=== PATIENT | female | born 1990 | race Caucasian/White ===

== ENCOUNTER 2020-07-12 09:20 | Outpatient (CLI) | payer BC, SELFPAY ==
[2020-07-18 09:49] LABS: COVID-19 RT-PCR UVMMC Result Negative (Negative)
== END 2020-07-12 09:40 ==
PROVIDERS: Visit Provider Family Medicine
DX: Z20.828 Contact with and (suspected) exposure to other viral communicable diseases (principal)
CPT/HCPCS: U0003

== ENCOUNTER 2020-07-17 08:50 | Outpatient (CLI) | payer BC, SELFPAY ==
[2020-07-18 15:08] LABS: COVID-19 RT-PCR UVMMC Result Negative (Negative)
== END 2020-07-17 09:10 ==
PROVIDERS: Visit Provider Family Medicine
DX: Z20.828 Contact with and (suspected) exposure to other viral communicable diseases (principal)
CPT/HCPCS: U0003

== ENCOUNTER 2020-07-25 09:49 | Outpatient (CLI) | payer BC, SELFPAY ==
[2020-07-26 14:49] LABS: COVID-19 RT-PCR UVMMC Result Negative (Negative)
== END 2020-07-25 10:09 ==
PROVIDERS: Visit Provider Family Medicine
DX: Z20.828 Contact with and (suspected) exposure to other viral communicable diseases (principal)
CPT/HCPCS: U0003

== ENCOUNTER 2021-10-03 11:06 | Outpatient (REF) | payer BC, SELFPAY ==
--- NOTE | 2021-10-03 09:00 | PAPFT_PTH ---
PATIENT: Arline Ken LOC: [facility] U#:[id number] AGE/SX: 31/F ROOM: RE10/03/[address]: Edna Sahni APRN : 1990 BED: DIS: 10/03/2021 SPEC #: [id number] RECD: 10/03/21 18:23 STATUS: LIGIA REAnjali #: [id number] SAE: 10/03/21 09:[address]: Edna Sahni DEPT: [facility] Cytology RECD BY: Mirta Ruiz Tissues: 1 - CX/ENDOCX FOR PAP SMEARS Procedures: PAP THIN PREP/UVM Screening HPV DNA PROBE Comments: [id number]
== END 2021-10-03 11:07 | disposition home or self-care (01) ==
LOC: LBN 11:06
PROVIDERS: PCP Nurse Practitioner; Referring Provider Nurse Practitioner; Visit Provider Nurse Practitioner
DX: Z12.4 Encounter for screening for malignant neoplasm of cervix (principal); Z11.51 Encounter for screening for human papillomavirus (HPV)
CPT/HCPCS: 88142; 87624

== ENCOUNTER 2022-05-18 16:47 | Emergency (ER) | payer BC, SELFPAY ==
--- NOTE | 2022-05-18 16:45 | DI.CT_ITS ---
Exam(s) CT HEAD WO EXAM: CT HEAD WO CLINICAL HISTORY: Slurred speech, Arm numbness resolved. TECHNIQUE: Imaging Protocol: Axial computed tomography images with coronal and sagittal reformatted images were created and reviewed COMPARISON: No exams were available for comparison FINDINGS: There are no skull fractures. There is no fluid in the visualized paranasal sinuses. There is no evidence of intracranial hemorrhage, mass effect, or shift of midline structures. There are no extra-axial fluid collections. The ventricles are not enlarged or shifted and there is no blo od within the ventricular system nor within the basal cisterns. IMPRESSION: No acute intracranial findings on this noninfused CT scan of the brain. Given the history here follow-up MRI is recommended. RADIATION DOSE DELIVERED: 693.31mGy.cm Total DLP DATA REPOSITORY: All CT scans at this facility are submitted to the National Radiology Data Registry (NRDR) Dose Index Registry (DIR) with the [employer] (ACR). RADIATION OPTIMIZATION: All CT scans at this facility use at least one of these dose optimization te chniques: automated exposure control; mA and/or kV adjustment per patient size (includes targeted exa ms where dose is matched to clinical indication); or iterative reconstruction.
[2022-05-18 16:51] VITALS: BP 100/57; PULSE 90; RESP 20; TEMP 37; O2SAT 99
--- NOTE | 2022-05-18 17:00 | ED.GENADUL_ITS ---
Discharge Plan Disposition Patient Disposition: HOME Condition: Stable Discharge Details Clinical Impression: Numbness and tingling in right hand Primary Care Provider: Edna Sahni ED Provider: Marcelle Boucher Home Meds and New Rx's Prescriptions: No Action ascorbate calcium (vitamin C) 500 mg tablet 500 mg PO DAILY Discharge Instructions Instructions: Paresthesia (ED) Additional Instructions: At this time head CT, lab work is all within normal limits no evidence of bleeding, mass or evidence of stroke at this time. However if you do have any reoccurrence of your symptoms please return to the ER for additional imaging possibly an MRI. Please follow-up with your primary care doctor within the next 3 to 5 days and discuss your symptoms and request for an MRI. Follow up with primary care provider in 3-5 days. Return to ED sooner if any worsening or concerns. Increase oral fluids. Please take Tylenol or Ibuprofen with food every 4-6 hours as needed for pain a nd swelling. Referrals: Edna Sahni, DENTURE CONTOUR WIRE SPECIALIST [Primary Care Provider] - 2 days Medical Decision Making 32-year-old female presents to the ER with a chief complaint of arm numbness, slurred speech trouble walking which occurred approximately an hour prior to arrival which resolved. After approximately 5 minutes. 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 Neurologic exam is unremarkable however due to patient's symptoms I will order head CT. Differential diagnosis includes but not limited to CVA, atypical migraine, TIA. 1842: Patient reevaluation, she denies any further symptoms denies any tingling numbness or headache. I did discuss her CT results with her she verbalizes understanding. CBC, CMP, magnesium ordered to rule out electrolyte abnormality as a cause for her symptoms. Labs are within normal limits, patient denies having any further symptoms no numbness, slurring speech no hand tingling. I did discuss follow-up with her primary care provider and option for possible MRI if further symptoms develop or recur. She verbalizes understanding discussed tricked return instructions. This text was generated using [employer] system, please disregard any oddities of phrase or misspellings. Imaging Data Radiologic Study: Imaging: CT Scan Radiologist's impression: COMPARISON: No relevant prior studies available. FINDINGS: Brain: Normal. No hemorrhage. Unremarkable white matter. No mass effect. Cerebral ventricles: No ventriculomegaly. Paranasal sinuses: Visualized sinuses are unremarkable. No fluid levels. Mastoid air cells: Visualized mastoid air cells are well aerated. Bones/joints: Unremarkable. No acute fracture. Soft tissues: Unremarkable. IMPRESSION: No acute intracranial abnormality. Lab Data Lab results reviewed: Yes I reviewed the patient's lab results. Labs: Laboratory Tests Range/Units 05/18/22 05/18/22 17:29 17:29 WBC (4.4-10.8) 10^3/uL 6.59 RBC (3.93-5.22) 10^6/uL 4.33 Hgb (11.2-15.7) g/dL 12.5 Hct (36.0-46.0) % 37.4 MCV (80-95) fL 86 MCH (27.0-33.0) pg 28.9 MCHC (32.0-36.0) % 33.4 RDW (11.7-14.6) % 11.9 Plt Count (130-400) 10^3/uL 340 MPV (8.0-11.0) fL 9.4 Immature Gran % 0.2 Neutrophils % 60.5 Lymphocytes % 29.0 Monocytes % 7.1 Eosinophils % 1.7 Basophils % 1.5 Nucleated RBC % (0.0-0.3) % 0.0 Absolute Neutrophils (1.2-6.7) 10^3/uL 3.99 Absolute Lymphocytes (1.2-3.4) 10^3/uL 1.91 Absolute Monocytes (0.1-0.8) 10^3/uL 0.47 Absolute Eosinophils (0.0-0.7) 10^3/uL 0.11 Absolute Basophils (0.0-0.2) 10^3/uL 0.10 Sodium (136-145) mmol/L 142 Potassium (3.5-5.1) mmol/L 4.0 Chloride (98-107) mmol/L 107 Carbon Dioxide (21.0-32.0) mmol/L 27.6 Anion Gap (3-11) mmol/L 7.4 BUN (7-18) mg/dL 12 Creatinine (0.55-1.02) mg/dL 0.8 Est GFR (CKD-EPI 2020) (mL/min/1.73m2) 100.33 Glucose (74-106) mg/dL 89 Calcium (8.5-10.1) mg/dL 9.1 Magnesium (1.8-2.4) mg/dL 2.3 Total Bilirubin (0.2-1.0) mg/dL 0.2 AST (15-37) U/L 18 ALT (14-59) U/L 18 Alkaline Phosphatase (46-116) U/L 51 Total Protein (6.4-8.2) g/dL 7.7 Albumin (3.4-5.0) g/dL 4.3 HPI General Mode of arrival: ambulatory . Date/Time Provider Initiated Documentation: 05/18/22 16:48 . Limitations to Documentation: no limitations . Information obtained by: patient, RN notes reviewed and old records reviewed . HPI Narrative: 32-year-old female presents to the ER with a chief complaint of arm numbness, slurred speech trouble walking which occurred approximately an hour prior to arrival which resolved. After approximately 5 minutes. 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 She reports that she did have some blurry vision which has since r esolved. She denies any headache at the time. She is tearful and upset upon arrival. She denies any other associated symptoms no nausea vomiting no problems urinating no diarrhea. No significant past medical history denies taking any meds on a regular basis. Related Data Home Medications Medication Instructions Recorded Confirmed ascorbate calcium (vitamin C) 500 500 mg PO DAILY 07/05/21 10/03/21 mg tablet Allergies Allergy/AdvReac Type Severity Reaction Status Date / Time No Known Allergies Allergy Verified 10/03/21 08:39 General Stated Complaint: GenMedical NOAH: 4 Review of Systems All systems reviewed & are unremarkable except as noted in HPI and below Constitutional Constitutional: Reports headache(s) and Reports weakness ENT Ears, Nose, Mouth, and Throat: Reports headache(s) Musculoskeletal Musculoskeletal: Reports numbness and Reports tingling Neurologic Neurologic: Reports as per HPI, Denies confusion, Reports headache(s), Reports numbness, Reports tingling and Reports weakness Psychiatric Psychiatric: Denies confusion PFSH All Active Problems (Updated 05/18/22 @ 20:02 by Marcelle Boucher NP) Numbness and tingling in right hand (Acute) Viral infection (Acute) Medical History Headache Family History Father Hypertension Paternal Uncle Stroke Maternal Grandfather Multiple sclerosis Social History Smoking/Tobacco Use Status: Never Second Hand Exposure: No Smoking risk assessment performed?: Yes Alcohol Intake: never Drug use: Never Substance use type: does not use Adopted: No Caregiver/Support person: No Foster care: No Household members: spouse and children Housing: house Number of Children: 2 Communication Needs: None Education Level: college Details: Associates Do you need help understanding health information?: Never current occupation: [employer] Pets and animals: Yes (2 dogs ) Pets and animals: dog(s) Sexually active: Yes Do you think of yourself as: straight/heterosexual Current gender identity: female What is your relationship status?: How often do you talk on the phone with friends or family?: three or more times per week How often do you get together with friends or relatives?: once per week Do you belong to any clubs or organized social groups?: no Panel score (0-1 are the most socially isolated patients): 2 What type of physical activity do you participate in: other Details: Regualr activity at work, running Duration: 15-30 minutes/day Frequency: 1-2 times per week Judy/Buddhist: Mandaen Special judy needs: No Seatbelt use: always Helmet use: Yes Helmet use: sometimes Drive intox 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 Appears stated age. Normal body habitus. Head: Normocephalic, no trauma. Eyes: Pupils PERRL, Red reflex noted, EOM's intact. Eyelids symmetrical without lesions, discharge, or swelling. ENT: Bilateral TM's WNL, External ear normal to inspection, no mastoid TTP, swelling, or erythema, Nasal turbinates WNL, no nasal discharge. Normal dentition, Posterior pharynx WNL, no exudate. Chest: RRR, Normal S1, S2, distal pulses intact. Resp: Lungs clear to auscultation bilaterally, no wheezes, rales, or rhonchi. Abdomen: Soft, non-distended, Normoactive bowel sounds all 4 quads. Musculoskeletal: Normal gait, 5/5 strength to all four extremities. Skin: No suspicious rashes or lesions. Capillary refill less than 2 sec. Neurologic: Cranial nerves II-XII intact. Alert and oriented x 3. Motor: No deficits noted. Sensory: Intact bilaterally all 4 extremities. Hematologic/Lymphatic: No ecchymosis, no lymphadenopathy. Course Vital Signs Vital signs: Vital Signs Temperature 37 C 05/18/22 16:51 Pulse 90 05/18/22 16:51 Respiratory Rate 20 05/18/22 16:51 Blood Pressure 100/57 L 05/18/22 16:51 Pulse Oximetry 99 05/18/22 16:51 Temperature 37 C 05/18/22 16:51 Temperature Source Temporal Artery Scan 05/18/22 16:51 Pulse 90 05/18/22 16:51 Respiratory Rate 20 05/18/22 16:51 Respiratory Effort Non-Labored 05/18/22 16:54 Blood Pressure 100/57 L 05/18/22 16:51 Blood Pressure Position Sitting 05/18/22 16:51 Pulse Oximetry 99 05/18/22 16:51 Oxygen Delivery Method Room Air 05/18/22 16:51 Oxygen Flow Rate 0 05/18/22 16:51 Pain Level 0 05/18/22 16:51
--- NOTE | 2022-05-18 18:23 | DI.VRAD_ITS ---
PROCEDURE INFORMATION: Exam: CT Head Without Contrast Exam date and time: 05/18/2022 5:34 PM Age: 32 years old Clinical indication: Other: Slurred speech, arm numbness resolved TECHNIQUE: Imaging protocol: Computed tomography of the head without contrast. Radiation optimization: All CT scans at this facility use at least one of these dose optimization techniques: automated exposure control; mA and/or kV adjustment per patient size (includes targeted exams where dose is matched to clinical indication); or iterative reconstruction. COMPARISON: No relevant prior studies available. FINDINGS: Brain: Normal. No hemorrhage. Unremarkable white matter. No mass effect. Cerebral ventricles: No ventriculomegaly. Paranasal sinuses: Visualized sinuses are unremarkable. No fluid levels. Mastoid air cells: Visualized mastoid air cells are well aerated. Bones/joints: Unremarkable. No acute fracture. Soft tissues: Unremarkable. IMPRESSION: No acute intracranial abnormality. Dictated and Authenticated by: Donny Anguiano MD. Ordering:SUZANNE Ibanez MD
[2022-05-18 19:32] LABS: Abs Immature Grans 0.01 10^3/uL (0.0-0.06); Absolute Eosinophil Count 0.11 10^3/uL (0.0-0.7); Absolute Lymphocyte Count 1.91 10^3/uL (1.2-3.4); Absolute Monocyte Count 0.47 10^3/uL (0.1-0.8); Absolute Neutrophil Count 3.99 10^3/uL (1.2-6.7); Basophils % 1.5; Eosinophils % 1.7; HCT 37.4 % (36.0-46.0); HGB 12.5 g/dL (11.2-15.7); Immature Grans % 0.2; MCH 28.9 pg (27.0-33.0); MCHC 33.4 % (32.0-36.0); MCV 86 fL (80-95); MPV 9.4 fL (8.0-11.0); Monocytes % 7.1; Neutrophils % 60.5; Platelet Count 340 10^3/uL (130-400); RBC 4.33 10^6/uL (3.93-5.22); RDW 11.9 % (11.7-14.6); RDW-SD 38.1 fL; WBC 6.59 10^3/uL (4.4-10.8)
--- NOTE | 2022-05-18 19:45 | NUR.NOTE ---
Pt currently denies symptoms. She expresses concern about symptoms
[2022-05-18 19:47] LABS: ALT 18 U/L (14-59); AST 18 U/L (15-37); Albumin 4.3 g/dL (3.4-5.0); Alkaline Phosphatase 51 U/L (46-116); Anion Gap 7.4 mmol/L (3-11); BUN 12 mg/dL (7-18); Bilirubin, Total 0.2 mg/dL (0.2-1.0); CO2 27.6 mmol/L (21.0-32.0); CREATININE 0.8 mg/dL (0.55-1.02); Calcium 9.1 mg/dL (8.5-10.1); Chloride 107 mmol/L (98-107); Estimated GFR 100.33 (mL/min/1.73m2); Glucose 89 mg/dL (74-106); Magnesium 2.3 mg/dL (1.8-2.4); Sodium 142 mmol/L (136-145); Total Protein 7.7 g/dL (6.4-8.2)
[2022-05-18 20:15] VITALS: BP 113/78; PULSE 64; RESP 16; TEMP 36.7; O2SAT 100
== END 2022-05-18 20:15 | disposition home or self-care (01) ==
PROVIDERS: Emergency Provider Registered Nurse Emergency; PCP Nurse Practitioner
DX: R20.0 Anesthesia of skin (principal); R20.2 Paresthesia of skin
CPT/HCPCS: 80053; 81025; 99284; 70450; 83735; 85025

== ENCOUNTER 2022-05-23 13:41 | Emergency (ER) | payer BC, SELFPAY ==
[2022-05-23] VITALS (8 sets, daily range): BP systolic 97–132; BP diastolic 51–80; PULSE 64–91; RESP 12–22; TEMP 36.4–36.6; O2SAT 99–100
--- NOTE | 2022-05-23 14:00 | RT.EKG_ITS ---
APPROVED REPORT Exam: Resting ECG Reason for Exam: ? CVA Patient Location: E HR:81 bpm ECG Measurements Heart Rate 81 AXIS WV 161 P 63 QRSd 91 QRS -30 QT 370 T 12 QTc 430 Conclusion Sinus rhythm...normal P axis, V-rate 60- 99 Left axis deviation...QRS axis (-30,-90) Low voltage, precordial leads...precordial leads <1.0mV
--- NOTE | 2022-05-23 14:00 | DI.MRI_ITS ---
Exam(s) MR BRAIN WO EXAM: MR BRAIN WO CLINICAL HISTORY: right arm weakness TECHNIQUE: Multiplanar multisequence MRI of the brain was performed. COMPARISON: CT CT HEAD WO from 05/18/2022 FINDINGS: VENTRICLES AND EXTRA AXIAL SPACES: Normal in size and morphology for the patient's age. MIDLINE SHIFT: None. CEREBRAL PARENCHYMA: No focus of restricted diffusion to suggest acute infarct. No space-occupying le minerva identified. HEMORRHAGE: None. BRAINSTEM/CEREBELLUM: Normal. CALVARIUM: Normal. VISUALIZED PARANASAL SINUSES/MASTOIDS:Small mucous retention cysts or polyps are seen in the maxillar y sinuses bilaterally. The remaining visualized paranasal sinuses are clear. [place]: Normal flow void. PITUITARY GLAND: Unremarkable. OTHER FINDINGS: None. IMPRESSION: 1. Unremarkable MRI of the brain. 2. Findings were discussed with Dr. Byers of the emergency department at 4:45 p.m. on 05/23/2022. DATA REPOSITORY:
--- NOTE | 2022-05-23 14:09 | DI.MRI_ITS ---
Exam(s) MR ANGIO BRAIN WO CLINICAL HISTORY: right arm weakness waxing and waning. TECHNIQUE: Multiplanar multisequence MRA of the brain was performed. COMPARISON: None. FINDINGS: Carotid Arteries: No aneurysm, occlusion or significant stenosis. Anterior Cerebral Arteries: Right: No aneurysm, occlusion or significant stenosis. Left: No aneurysm, occlusion or significant stenosis. Middle Cerebral Arteries: Right: No aneurysm, occlusion or significant stenosis. Left: No aneurysm, occlusion or significant stenosis. Posterior Cerebral Arteries: Right: No aneurysm, occlusion or significant stenosis. Left: No aneurysm, occlusion or significant stenosis. The left [employer]ESSOR [employer] MECHANICAL ENGINEERING arises from the left posterior co mmunicating artery. This is a normal variant. Vertebral Arteries: Right: No aneurysm, occlusion or significant stenosis. Left: No aneurysm, occlusion or significant stenosis. Basilar Artery: No aneurysm, occlusion or significant stenosis. IMPRESSION: 1. Normal MRA examination of the [place]. 2. Findings were discussed with Dr. Byers at 4:45 p.m. on 05/23/2022. DATA REPOSITORY:
--- NOTE | 2022-05-23 14:09 | DI.MRI_ITS ---
Exam(s) MR ANGIO NECK WO EXAM: MR ANGIO NECK WO CLINICAL HISTORY: right arm weakness waxing and waning. TECHNIQUE: Multiplanar multisequence MRA of the Neck was performed. COMPARISON: No exams were available for comparison FINDINGS: Common Carotid: Right: No dissection, occlusion or significant stenosis. Left: No dissection, occlusion or significant stenosis. External Carotid: Right: No evidence of occlusion or significant stenosis. Left: No evidence of occlusion or significant stenosis. Internal Carotid: Right: No dissection, occlusion or significant stenosis. Left: No dissection, occlusion or significant stenosis. Vertebral Artery: Right: No dissection, occlusion or significant stenosis. Left: No dissection, occlusion or significant stenosis. The visualized paraspinal soft tissues are unremarkable. IMPRESSION: 1. No evidence of dissection, occlusion or significant stenosis. 2. Findings were discussed with the emergency department at 4:45 p.m. on 05/23/2022. DATA REPOSITORY:
[2022-05-23 14:24] LABS: Abs Immature Grans 0.03 10^3/uL (0.0-0.06); Absolute Basophil Count 0.05 10^3/uL (0.0-0.2); Absolute Eosinophil Count 0.05 10^3/uL (0.0-0.7); Absolute Lymphocyte Count 1.43 10^3/uL (1.2-3.4); Absolute Monocyte Count 0.45 10^3/uL (0.1-0.8); Absolute Neutrophil Count 4.29 10^3/uL (1.2-6.7); Basophils % 0.8; Eosinophils % 0.8; HCT 37.4 % (36.0-46.0); HGB 12.8 g/dL (11.2-15.7); Immature Grans % 0.5; Lymphocytes % 22.7; MCH 29.5 pg (27.0-33.0); MCHC 34.2 % (32.0-36.0); MCV 86 fL (80-95); MPV 9.6 fL (8.0-11.0); Monocytes % 7.1; Neutrophils % 68.1; Platelet Count 335 10^3/uL (130-400); RBC 4.34 10^6/uL (3.93-5.22); RDW 11.7 % (11.7-14.6)
[2022-05-23 14:42] LABS: ALT 20 U/L (14-59); AST 21 U/L (15-37); Albumin 4.3 g/dL (3.4-5.0); Alkaline Phosphatase 49 U/L (46-116); Anion Gap 6.6 mmol/L (3-11); BUN 16 mg/dL (7-18); Bilirubin, Total 0.3 mg/dL (0.2-1.0); CO2 27.4 mmol/L (21.0-32.0); CREATININE 0.9 mg/dL (0.55-1.02); Calcium 9.4 mg/dL (8.5-10.1); Chloride 105 mmol/L (98-107); Estimated GFR 87.11 (mL/min/1.73m2); Glucose 92 mg/dL (74-106); Magnesium 1.9 mg/dL (1.8-2.4); Potassium 3.5 mmol/L (3.5-5.1); Sodium 139 mmol/L (136-145); Total Protein 7.6 g/dL (6.4-8.2); Troponin I < 50 ng/L (<or=60)
--- NOTE | 2022-05-23 15:04 | W.ED.GENAD ---
Discharge Plan Disposition Patient Disposition: HOME Condition: Stable Discharge Details Clinical Impression: Right arm weakness Primary Care Provider: Edna Sahni ED Provider: Brennan Byers Home Meds and New Rx's Prescriptions: New aspirin 81 mg capsule 81 mg PO DAILY Qty: 30 0RF Continued ascorbate calcium (vitamin C) 500 mg tablet 500 mg PO DAILY Discharge Instructions Instructions: Transient Ischemic Attack (ED) Additional Instructions: Please take aspirin 81 mg daily. You are given initial dose here before department. Your next dose should be tomorrow and then continue daily thereafter. Please contact your primary care physician to arrange follow-up. Please follow-up with neurology. Call tomorrow to schedule an appointment. Return to the ER immediately for any worsening or new concerning symptoms. Referrals: Anahy Garcia MD [ [facility] STAFF PHYSICIAN] - Edna Sahni NP [Primary Care Provider] - Discharge Data Discharge Date/Time-TO BE ENTERED AT DEPARTURE: 05/23/22 17:25 Medical Decision Making 1510 --32-year-old female here with right arm weakness and lack of proprioception intermittent over the past 1 hour on 05/18/2022. Patient is currently asymptomatic. No indication for thrombolytics. Patient had negative CT of the head on 05/18/2022. Plan to proceed to MRI of the brain and MRA of the brain and neck to assess for ischemic process. Screening EKG was reviewed and interpreted by me: Please see report, sinus rhythm 81 bpm, low voltage precordial leads, left axis deviation, nondiagnostic. 1711 --MRI and MRA were interpreted by radiology as negative. Patient reassessed and has had no recurrence of symptoms. Plan will be for outpatient follow-up with neurology. Patient would benefit from timely follow-up in the next 1 week with neuro. Plan was discussed with patient. Plan for rest over the next few days with no exertional activities. I recommended she start taking aspirin. Disposition decision was made weighing the risks and benefits of hospitalization versus outpatient treatment, the risk for further decompensation, and the patient's wishes. The patient was stable and requested discharge. Prior to discharge, my usual and customary return precautions were reviewed with the patient - this included follow-up instructions and reason to return to the emergency department if condition worsens, does not improve as expected, or other new concerns arise. HPI General Mode of arrival: ambulatory. Date/Time Provider Initiated Documentation: 05/23/22 13:56. Limitations to Documentation: no limitations. Information obtained by: patient. HPI Narrative: 32-year-old female presents with chief complaint of right arm weakness. Patient notes that she was seen here in the emergency department on 05/18 for sudden onset left arm weakness and slurred speech that lasted approximately 5 minutes and resolved. She had negative diagnostic labs and CT of the head and was discharged home. She notes about an hour prior to arrival today she developed right arm weakness and a sensation of lack of proprioception. Symptoms have waxed and waned today since onset. She does not currently have symptoms. She also notes some associated dizziness. Currently patient is asymptomatic. She denies associated neck pain. Related Data Home Medications Medication Instructions Recorded Confirmed ascorbate calcium (vitamin C) 500 500 mg PO DAILY 07/05/21 05/30/22 mg tablet aspirin 81 mg capsule 81 mg PO DAILY #30 caps 05/23/22 05/30/22 Previous Rx's Medication Instructions Recorded aspirin 81 mg capsule 81 mg PO DAILY #30 caps 05/23/22 Allergies Allergy/AdvReac Type Severity Reaction Status Date / Time No Known Allergies Allergy Verified 05/30/22 13:51 General Stated Complaint: CVA/TIA NOAH: 2 Review of Systems All systems reviewed & are unremarkable except as noted in HPI and below Constitutional Constitutional: Denies fever(s) Cardiovascular Cardiovascular: Denies dyspnea Respiratory Respiratory: Denies dyspnea Neurologic Neurologic: Reports as per HPI PFSH All Active Problems (Updated 05/30/22 @ 14:30 by Anahy Garcia MD) Transient neurological symptoms (Acute) Numbness and tingling in right hand (Acute) Right arm weakness (Acute) Viral infection (Acute) Medical History Headache Family History Father Hypertension Paternal Uncle Stroke Maternal Grandfather Multiple sclerosis Social History Smoking/Tobacco Use Status: Never Second Hand Exposure: No Smoking risk assessment performed?: Yes Alcohol Intake: never Drug use: Never Substance use type: does not use Adopted: No Caregiver/Support person: No Foster care: No Household members: spouse and children Housing: house Number of Children: 2 Communication Needs: None Education Level: college Details: Associates Do you need help understanding health information?: Never current occupation: [employer] Pets and animals: Yes (2 dogs ) Pets and animals: dog(s) Sexually active: Yes Do you think of yourself as: straight/heterosexual Current gender identity: female What is your relationship status?: How often do you talk on the phone with friends or family?: three or more times per week How often do you get together with friends or relatives?: once per week Do you belong to any clubs or organized social groups?: no Panel score (0-1 are the most socially isolated patients): 2 What type of physical activity do you participate in: other Details: Regualr activity at work, running Duration: 15-30 minutes/day Frequency: 1-2 times per week Judy/Holiness: Church Special judy needs: No Seatbelt use: always Helmet use: Yes Helmet use: sometimes Drive intox 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 Do you feel safe in your relationship?: Yes Exam Const General: cooperative and anxious Orientation: alert and awake HENMT Mouth: moist mucous membranes Eyes Conjunctivae: normal conjunctivae Sclera: normal sclerae Neck Neck: trachea midline and supple Resp Auscultation: clear to auscultation bilaterally, no rales, no rhonchi and no wheezes Cardio Rate: regular rate and not tachycardic Rhythm: regular rhythm GI Palpation: soft, not firm, no guarding, no masses, not rigid and nontender Skin General skin exam: no rashes or lesions noted Neuro General: patient alert, patient awake and tone normal Cranial Nerves: PERRL, accommodation normal, EOM intact bilaterally, no nystagmus, facial strength normal, tongue midline, able to rotate head bilaterally, able to elevate shoulders bilaterally, sense of smell not altered and symmetric palate elevation Cognition: normal cognition Speech: speech normal Motor: muscle tone normal throughout, strength 5/5 throughout and no pronator drift Sensory Exam: no sensory deficits noted Extrem General: no edema Psych Appearance: grossly normal Mental Status: mental status grossly normal Speech and Movement: speech and movement normal Course Vital Signs Vital signs: Vital Signs Temperature 36.4 C L 05/23/22 13:45 Pulse 91 H 05/23/22 13:45 Respiratory Rate 22 05/23/22 13:45 Blood Pressure 132/61 05/23/22 13:45 Pulse Oximetry 99 05/23/22 13:45 Temperature 36.4 C L 05/23/22 13:45 Temperature Source Oral 05/23/22 13:45 Pulse 64 05/23/22 14:46 Pulse 71 05/23/22 14:46 Respiratory Rate 12 05/23/22 14:46 Respiratory Effort Non-Labored 05/23/22 14:00 Respiratory Depth Normal 05/23/22 14:00 Respiratory Pattern Normal 05/23/22 14:00 Blood Pressure 97/51 L 05/23/22 14:46 Blood Pressure Mean 61 05/23/22 14:46 Blood Pressure Position Sitting 05/23/22 13:45 Pulse Oximetry 99 05/23/22 14:46 Oxygen Delivery Method Room Air 05/23/22 13:45 Oxygen Flow Rate 0 05/23/22 13:45 Pain Level 0 05/23/22 13:45 Lab/Test Results Lab/Test Results: Laboratory Tests Range/Units 05/23/22 05/23/22 14:15 14:15 WBC (4.4-10.8) 10^3/uL 6.30 RBC (3.93-5.22) 10^6/uL 4.34 Hgb (11.2-15.7) g/dL 12.8 Hct (36.0-46.0) % 37.4 MCV (80-95) fL 86 MCH (27.0-33.0) pg 29.5 MCHC (32.0-36.0) % 34.2 RDW (11.7-14.6) % 11.7 Plt Count (130-400) 10^3/uL 335 MPV (8.0-11.0) fL 9.6 Immature Gran % 0.5 Neutrophils % 68.1 Lymphocytes % 22.7 Monocytes % 7.1 Eosinophils % 0.8 Basophils % 0.8 Nucleated RBC % (0.0-0.3) % 0.0 Absolute Neutrophils (1.2-6.7) 10^3/uL 4.29 Absolute Lymphocytes (1.2-3.4) 10^3/uL 1.43 Absolute Monocytes (0.1-0.8) 10^3/uL 0.45 Absolute Eosinophils (0.0-0.7) 10^3/uL 0.05 Absolute Basophils (0.0-0.2) 10^3/uL 0.05 Sodium (136-145) mmol/L 139 Potassium (3.5-5.1) mmol/L 3.5 Chloride (98-107) mmol/L 105 Carbon Dioxide (21.0-32.0) mmol/L 27.4 Anion Gap (3-11) mmol/L 6.6 BUN (7-18) mg/dL 16 Creatinine (0.55-1.02) mg/dL 0.9 Est GFR (CKD-EPI 2020) (mL/min/1.73m2) 87.11 Glucose (74-106) mg/dL 92 Calcium (8.5-10.1) mg/dL 9.4 Magnesium (1.8-2.4) mg/dL 1.9 Total Bilirubin (0.2-1.0) mg/dL 0.3 AST (15-37) U/L 21 ALT (14-59) U/L 20 Alkaline Phosphatase (46-116) U/L 49 Troponin I (<or=60) ng/L < 50 Total Protein (6.4-8.2) g/dL 7.6 Albumin (3.4-5.0) g/dL 4.3
--- NOTE | 2022-05-23 17:15 | NUR.NOTE ---
Nursing Note: REFERRAL TO [facility] FOR TIA
[2022-05-23] MEDS: Aspirin 81 MG CHEW PO (17:22)
== END 2022-05-23 17:25 | disposition home or self-care (01) ==
PROVIDERS: Emergency Provider Student in an Organized Health Care Education/Training Program; PCP Nurse Practitioner
DX: R53.1 Weakness (principal); R20.0 Anesthesia of skin; R47.81 Slurred speech
CPT/HCPCS: 36415; 70544; 70547; 80053; 93005; 99285; 70551; 83735; 84484; 85025; 93010; 99284

== ENCOUNTER 2022-06-21 01:43 | Outpatient (CLI) | payer BC, SELFPAY ==
--- OUTSIDE RECORDS SUMMARY | 2022-06-21 01:45 | XMS_ITS | Clinical Summary ---
:1990 Demographics Home Phone Preferred Language Unknown Marital Status Unknown Scientologist Affiliation Unknown Race Unknown Ethnic Group Unknown Author Organization [facility] Address [address] [place] [address] Care Team Providers Name Role Phone Unavailable Primary Care Provider Unavailable Social History Tobacco Use Types Packs/Day Years Used Date Smoking Tobacco: Never Assessed Sex Assigned at Date Recorded Not on file Plan of Treatment Health Maintenance Due Date Last Done Comments Hepatitis C Screen 1990 COVID-19 Vaccine (#1) 1990
--- OUTSIDE RECORDS SUMMARY | 2022-06-21 01:45 | XMS_ITS | Encounter Summary ---
:1990 Demographics Home Phone Preferred Language Unknown Marital Status Unknown Protestant Affiliation Unknown Race Unknown Ethnic Group Unknown Author Organization [facility] Address [address] [place] [address] Care Team Providers Name Role Phone Unavailable Primary Care Provider Unavailable Encounter Details Date Type Department Care Team Description 07/25/2020 Lab Requisition [facility] Outr Resulting Lab, Pathology & Laboratory Provider [facility] [address] [place] [address] Social History Tobacco Use Types Packs/Day Years Used Date Smoking Tobacco: Never Assessed Sex Assigned at Date Recorded Not on file documented as of this encounter Plan of Treatment Not on filedocumented as of this encounter Procedures Procedure Name Priority Date/Time Associated Diagnosis Comme nts COVID-19 TEST [facility] Today 07/25/2020 9:52 EST LAB PCR COVID-19 TESTING Routine 07/25/2020 9:52 EST Resu lts for this procedure are i n the results section. documented in this encounter Results COVID-19 TEST [facility] LAB PCR (07/25/2020 9:52 EST) Specimen Anatomical Location Collection Method Collection Time Received Time (Source) / Laterality / Volume Swab ENTIRE NASOPHARYNX 07/25/2020 9:52 2019 / Unknown EST 16:07 EST Provider Outr Resulting Lab MICROBIOLOGY - GENERAL ORD ERABLES Performing Organization Address City/State/ZIP Code Phon e Number [facility] [address] [place] [address] SERVICES COVID-19 TESTING (07/25/2020 9:52 EST) Analysis Performed At Patho logist Time Signature COVID-19 Negative Negative 07/26/2020 [facility] MED[facility] rt-PCR Result 14:44 EST CENTER LABORATORY SERVICES Comment: Negative results do not preclude 2019-nC oV infection and should not be used as the sole basis for treatment or other patient management decisions. Negative results must be combined with clinical observa tions, patient history, and epidemiologi shaheen information. This test was developed and its performa nce characteristics determined by [facility]. It has not been cleared or approved by the US Food and Drug Administration. FDA does not require this test to go through premarket FDA review. This test is used for clinical purposes. It should not be regarded as investigational or for research. This laboratory is certified under the Clinical Laboratory Improvement Amendm ents (CLIA) as qualified to perform high complexity clinical laboratory testing. This test is based on the CDC COVID-19 E mergency Use Authorization (EUA) assay, with minor modification as defined by the FDA Performed on the [employer] 7 Flex. Performing Lab Quantstudio 7 [facility] 07/26/2020 14:4 4 EST [facility] Lab LABORATORY SERVICES Specimen Anatomical Collection Method Collection Time Receive d Time (Source) Location / / Volume Laterality Swab 07/25/2020 9:52 07/25/2020 EST 16:07 EST Provider Outr Resulting Lab MICROBIOLOGY - GENERAL ORD ERABLES Performing Organization Address City/State/ZIP Code Phon e Number [facility] [address] [place] [address] SERVICES documented in this encounter Visit Diagnoses Not on filedocumented in this encounter
--- OUTSIDE RECORDS SUMMARY | 2022-06-21 01:45 | XMS_ITS | Encounter Summary ---
:1990 Demographics Home Phone Preferred Language Unknown Marital Status Unknown Scientology Affiliation Unknown Race Unknown Ethnic Group Unknown Author Organization [facility] Address [address] [place] [address] Care Team Providers Name Role Phone Unavailable Primary Care Provider Unavailable Encounter Details Date Type Department Care Team Description 10/04/2021 Lab Requisition [facility] Edna Sahni nter for screening for human papillomavirus (HPV); Pathology & A, BOLT MACHINE OPERATOR Encounter for screening for malignant ne oplasm of cervix Laboratory Medicine [address] [place] [id number] Social History Tobacco Use Types Packs/Day Years Used Date Smoking Tobacco: Never Assessed Sex Assigned at Date Recorded Not on file documented as of this encounter Plan of Treatment Not on filedocumented as of this encounter Procedures Procedure Name Priority Date/Time Associated Diagnosis Comme nts PAP TEST Today 10/03/2021 9:00 Encounter for Results for this EST screening for human procedur e are in papillomavirus ( HPV) the results Encounter for section. screening for malignant neoplasm of cervix HUMAN PAPILLOMAVIRUS Today 10/03/2021 9:00 Encounter for Res ults for this (HPV) DETECTION-HIGH EST screening for human procedure are in RISK TYPES papillomavirus ( HPV) the results Encounter for section. screening for malignant neoplasm of cervix documented in this encounter Results HUMAN PAPILLOMAVIRUS (HPV) DETECTION-HIGH RISK TYPES (10/03/2021 9:00 EST) [facility] gist Method Time Signature Human Negative Negative 10/12/2021 [facility] Papillomavirus 8:09 EDT CENTER (HPV) LABORATORY Detection-High SERVICES Types Comment: No E6 or E7 mRNA is detected fr HPV types 16,18,31,33,35,39,45,51,52,56,58,59,66, and 68 by community facilitator mediated amplification. Specimen Anatomical Collection Method Collection Time Receive d Time (Source) Location / / Volume Laterality Pap Test (Cervix 10/03/2021 9:00 10/10/19 22 9:08 and/or EST EDT Endocervix) Edna Sahni BOLT MACHINE OPERATOR MICROBIOLOGY - GENERAL ORDER SHANIKA Performing Organization Address City/State/ZIP Code Phon e Number [facility] [address] [place] [address] SERVICES PAP TEST (10/03/2021 9:00 EST) Component Value Ref Test Analysis Performed At [facility] gist Range Method Time Signature Specimens A. Cervix and/or 10/12/2021 [facility] Endocervix , 8:09 [facility] ThinPrep Imaging LABORATORY System with SERVICES Manual Evaluation Specimen Satisfactory for Evaluation - transformation zone comp onent present 10/12/2021 [facility] Adequacy Scant squamous epithelial co mponent, contamination present, possibly lubricant 8:09 [facility] LABORATORY SERVICES General Negative for 10/12/2021 [facility] Categorization intraepithelial 8:09 [facility] lesion or LABORATORY malignancy SERVICES Attestation . 10/12/2021 [facility] Elect ronically 8:09 [facility] signed by GERTRUDE Blackwood, GUNNAR Maldonado(ASCP) o n 10/12/2021 at 0809 Clinical History See below 10/12/2021 [facility] 8:09 [facility] LABORATORY SERVICES HPV The result for the Human Pap illomavirus (HPV) Detection-High Risk Types is Negative. No E6 or E7 mRNA is detected from HPV types 16,18,31,33,35,39,45,51,52,56,58,59,66, and 68 by community facilitator mediated 10/12/2021 [facility] amplification.Testing was pe rformed on specimen [id number] and was resulted on 10/12/2021 0806 EDT by RASHIDA, LAB INSTRUMENT RESULTS IN 8:09 [facility] LABORATORY SERVICES Performing Lab [facility] 10/12/2021 [facility] LAB 8:09 [facility] LABORATORY SERVICES Scanned Images 10/12/2021 [facility] 8:09 [facility] LABORATORY SERVICES Specimen Anatomical Collection Method Collection Time Receive d Time (Source) Location / / Volume Laterality Pap Test (Cervix 10/03/2021 9:00 10/05/19 22 9:28 and/or EST EST Endocervix) Edna Sahni NP PATHOLOGY ORDERABLES Performing Organization Address City/State/ZIP Code Phon e Number [facility] [address] [place] [address] SERVICES documented in this encounter Visit Diagnoses Diagnosis Encounter for screening for human papill omavirus (HPV) Special screening examination for human papillomavirus (HPV) Encounter for screening for malignant ne oplasm of cervix Screening for malignant neoplasm of the cervix documented in this encounter
--- OUTSIDE RECORDS SUMMARY | 2022-06-21 01:45 | XMS_ITS | Encounter Summary ---
:1990 Demographics Home Phone Preferred Language Unknown Marital Status Unknown Anglican Affiliation Unknown Race Unknown Ethnic Group Unknown Author Organization [facility] Address [address] [place] [address] Care Team Providers Name Role Phone Unavailable Primary Care Provider Unavailable Encounter Details Date Type Department Care Team Description 07/12/2020 Lab Requisition [facility] Outr Resulting Lab, Pathology & Laboratory Provider [facility] [address] [place] [address] Social History Tobacco Use Types Packs/Day Years Used Date Smoking Tobacco: Never Assessed Sex Assigned at Date Recorded Not on file documented as of this encounter Plan of Treatment Not on filedocumented as of this encounter Procedures Procedure Name Priority Date/Time Associated Diagnosis Comme nts COVID-19 TEST [facility] Today 07/12/2020 9:29 EST LAB PCR COVID-19 TESTING Routine 07/12/2020 9:29 EST Resu lts for this procedure are i n the results section. documented in this encounter Results COVID-19 TEST [facility] LAB PCR (07/12/2020 9:29 EST) Specimen Anatomical Location Collection Method Collection Time Received Time (Source) / Laterality / Volume Swab ENTIRE NASOPHARYNX 07/12/2020 9:29 2019 / Unknown EST 16:45 EST Provider Outr Resulting Lab MICROBIOLOGY - GENERAL ORD ERABLES Performing Organization Address City/State/ZIP Code Phon e Number [facility] [address] [place] [address] SERVICES COVID-19 TESTING (07/12/2020 9:29 EST) Analysis Performed At Patho logist Time Signature COVID-19 Negative Negative 07/18/2020 [facility] rt-PCR Result 9:42 EST CENTER LABORATORY SERVICES Comment: Negative results do not preclude 2019-nC oV infection and should not be used as the sole basis for treatment or other patient management decisions. Negative results must be combined with clinical observa tions, patient history, and epidemiologi shaheen information. This test was developed and its performa nce characteristics determined by [facility]. It has not been cleared or approved [...] defined by the FDA Performed on the [employer] 7 Flex. Performing Lab Quantstudio 7 [facility] Lab 07/18/2020 9:42 EST [facility] SERVICES Specimen Anatomical Collection Method Collection Time Receive d Time (Source) Location / / Volume Laterality Swab 07/12/2020 9:29 07/12/2020 EST 16:45 EST Provider Outr Resulting Lab MICROBIOLOGY - GENERAL ORD ERABLES Performing Organization Address City/State/ZIP Code Phon e Number [facility] [address] [place] [address] SERVICES documented in this encounter Visit Diagnoses Not on filedocumented in this encounter
--- OUTSIDE RECORDS SUMMARY | 2022-06-21 01:45 | XMS_ITS | Clinical Summary ---
:1990 Author Organization [facility] [place] [address] Care Team Providers Name Role Phone None Primary Care Provider Unavailable Allergies No known active allergies Medications No known medications Social History Tobacco Use Types Packs/Day Years Used Date Smoking Tobacco: Never Smokeless Tobacco: Never Sex Assigned at Date Recorded Not on file Plan of Treatment Health Maintenance Due Date Last Done Comments Hepatitis B vaccine (0-59 yrs) (1 of 3 - 3-dose series) 04/14/19 90 Covid-19 Vaccine (#1) 1990 HIV screen 2008 Hepatitis C Screening 2008 Tdap adult 2009 Tetanus vaccine 2009 HPV test 2020 PAP Smear 2020 Influenza (Flu) vaccine (1 of 1 - Influenza standard 03/28/2022 series) Insurance Payer Benefit Plan / Subscriber ID Effective Dates Phone Addre ss Type Group [employer] [place] [id number] 2018-Present [address] [employer] [place] [place], [place] [address] Care Teams Test Facility Engineer Relationship Specialty Start Date End Date None PCP - General 06/03/19 None
--- OUTSIDE RECORDS SUMMARY | 2022-06-21 01:45 | XMS_ITS | Encounter Summary ---
:1990 Author Organization [facility] [place] [address] Care Team Providers Name Role Phone None Primary Care Provider Unavailable Reason for Visit Reason Comments Follow-up Encounter Details Date Type Department Care Team Description 06/03/2019 Office Visit Dermatology at [facility] Stephen Barth MD [place] [address] [place] [address] DERMATOLOGY [phone] [place], [place] [address] (Wo rk) Social History Tobacco Use Types Packs/Day Years Used Date Smoking Tobacco: Never Smokeless Tobacco: Never Sex Assigned at Date Recorded Not on file documented as of this encounter Progress Notes Stephen Barth MD - 06/03/2019 8:00 AM EST Problem: 1. Changing nevus left nasolabial fold 2. Status post excision nevus right nasolabial fold November 2009 Arline follows up and is now 29. The nevus of long-standing on the left nasolabial fold started to bleed spontaneously this summer. 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 She first noticed this problem in January, and then again at the [facility] first week in March.She does not recall any trauma to the site. She is concerned that it might represent a precancerous or cancerous change. Physical examination reveals an ovoid compound versus intradermal nevus moderately brown in pigmentation in this Ortega type III patient. There is a central area of slight umbilication. Overall the pigmentation is even. The nevus is symmetric and appears benign. There is no underlying erythema or induration. The right nasolabial fold excision site remains well-healed with minimal scar from her procedure in 2009. 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 Patient reassured about benign appearance of this today. 2. Reassured her that I see no evidence of any malignant change 3. We will hold off on excision now, but if it again becomes inflamed and irritated or bleeds then she can call the office and request a 30-minute appointment and we will excise this for her. documented in this encounter Plan of Treatment Not on filedocumented as of this encounter Visit Diagnoses Diagnosis Nevus Benign neoplasm of skin, site unspecifie d documented in this encounter Care Teams Business Objects Architect Relationship Specialty Start Date End Date None PCP - General 06/03/19 None documented as of this encounter
[2022-06-21 08:20] LABS: ESR 1 mm/hr (0-20)
[2022-06-21 09:02] LABS: Hemoglobin A1C 5.2 % (<5.7)
[2022-06-21 09:06] LABS: Calculated LDL 77 mg/dL (<100); Cholesterol 174 mg/dL (<200); HDL Cholesterol 91 mg/dL (40-60); Triglyceride 30 mg/dL (<150)
[2022-06-21 09:31] LABS: C-Reactive Protein < 0.05 mg/dL (0.0-0.3)
[2022-06-23 19:15] LABS: Anaplasma phagocytophilum Negative (Negative); B. miyamotoi PCR Negative (Negative); Babesia divergens/MO-1 Negative (Negative); Babesia duncani Negative (Negative); Babesia microti Negative (Negative); Ehrlichia chaffeensis Negative (Negative); Ehrlichia ewingii/canis Negative (Negative); Ehrlichia muris eauclairensis Negative (Negative)
[2022-06-24 09:48] LABS: Lyme Ab w Rflx to Lyme Confirm Negative (Negative)
[2022-06-24 14:55] LABS: ANA Interpretation Negative (Negative)
[2022-06-24 19:12] LABS: Beta 2 Glycoprotein 1 Ab IgA <9.4 U/mL
[2022-06-25 07:59] LABS: Dilute Russell Viper Venom 31.2 secs (25.2-42.2); LA Cascade Summary (See Note); Silica Clotting Time 40.4 secs (30.2-48.4)
== END 2022-06-21 01:44 | disposition home or self-care (01) ==
LOC: LBO 01:43
PROVIDERS: PCP Nurse Practitioner; Visit Provider Psychiatry & Neurology Neurology
DX: R29.818 Other symptoms and signs involving the nervous system (principal); R73.9 Hyperglycemia, unspecified
CPT/HCPCS: 36415; 80061; 85652; 86146; 87116; 87798; 83036; 86038; 86140; 86618

== ENCOUNTER → 2022-07-02 10:07 | Outpatient (CLI) | payer BC, SELFPAY ==
--- NOTE | 2022-07-02 13:57 | DI.US_ITS ---
APPROVED REPORT EXAM: Comprehensive 2D, Doppler, and color-flow Echocardiogram Patient Location: Out-Patient Patient Clerical Assistant: Mansi Shoemaker RDCS (AE) Indications: CVA, Transient neurological symptoms Other Information Study Quality: Good Conclusion Normal left ventricular wall thickness and chamber size. Estimated ejection fraction is 65 to 70%. Wall motion is normal Normal right ventricular size and systolic function Both atria are normal in size There is no structural or hemodynamically significant valvular disease Normal estimated right ventricular systolic pressure 18 mmHg Wall motion Left Ventricle The left ventricle is normal size. The left ventricular systolic function is normal. The left ventric ular ejection fraction is within the normal range. There is normal left ventricular wall thickness. T here is normal LV segmental wall motion. There is no ventricular septal defect visualized. LVEF is 67 %. Right Ventricle The right ventricle is normal size. The right ventricular systolic function is normal. The RVSP is 18 .1 mmHg. Atria The left atrium size is normal. The right atrium size is normal. The interatrial septum is intact wit h no evidence for an atrial septal defect. Aortic Valve The aortic valve is normal in structure. There is no aortic valvular stenosis. No aortic regurgitatio n is present. Mitral Valve The mitral valve is normal in structure. No evidence of mitral valve stenosis. Trace mitral regurgita tion. Tricuspid Valve The tricuspid valve is normal in structure. There is no tricuspid valve stenosis. Trace to mild tricu spid regurgitation. Pulmonic Valve The pulmonary valve is normal in structure. There is no pulmonic valvular stenosis. There is no pulmo mabel valvular regurgitation. Great Vessels The aortic root is normal in size. The ascending aorta is normal in size. IVC is normal in size and c ollapses >50% with inspiration. Pericardium There is no pericardial effusion. 2D Dimensions IVSD d PLAX 0.75 cm F: 0.6-1.0 LV Vol A2C d MOD 88.6 mL LVPW d PLAX 0.75 cm F: 0.6 - 1.0 LV Vol A4C d MOD 86.4 mL LVID d PLAX 4.26 cm F: 3.8 - 5.2 LA vol/ BSA A2C s A-L 24.4 mL/m2 LVDs 2.65 cm F: 2.2 - 3.5 LA vol/ BSA A4C s A-L 23.6 mL/m2 Ao Root d 2.50 cm F: 2.7 - 3.3 LA Vol/ BSA Biplane s A-L 25.8 mL/m2 RA Area A4C 10.36 cm2 LA Area A4C s MOD 15.22 cm2 RA Vol/ BSA A4C s A-L 14.3 mL/m2 LA Area A2C s MOD 14.42 cm2 Ao Asc Diam d 2.73 cm F: 2.3 - 3.1 LV EF A4C MOD 66.6 % LV EF Teichholz 68.1 % LV EF A2C MOD 67.3 % LVEF (Baird's) 66.47 % F: 54 - 74 LV EF Biplane MOD 66.5 % LV Volume 71.41 mL F: 46 - 106 SV 58.57 mL LV Volume Index 44.35 mL/m2 F: 29 - 61 SV Index 36.37 mL/m2 LV Vol Biplane MOD 88.1 mL FS 37.60 % M-Mode TAPSE 2.00 cm (M/F) >1.7 LV Diastology MV E' medial 0.132 (>0.07 m/s) E/A Ratio 1.4 LV E/e MED 6.30 (<14) MV E Vmax 0.84 (0.4-1.3 m/s) MV E' lateral 0.207 (>0.1 m/s) MV A Vmax 0.60 (0.4-1.3 m/s) LV E/e LAT 4.00 (<14) MV E/A Ratio 1.39 MV E/E' medial 6.33 MV E/E' lateral 4.04 Aortic Valve LVOT Area 2.92 cm2 AoV Area Vmax 2.56 cm2 LVOT Vmax 1.17 m/s AoV Area/ BSA (Vmax) 1.59 cm2/m2 LVOT Mean Toño. 0.78 m/s KATYA Mean Toño. 2.40 cm2 LVOT Peak Grad 5.5 mmHg KATYA Mean Toño. Index 1.49 cm2/m2 LVOT Mean Grad 2.8 mmHg LVOT VTI 0.208 m LVOT Diam s 1.90 cm AoV Vmax 1.33 m/s Velocity Ratio 0.88 AoV Mean Toño. 0.95 m/s AoV Peak Grad 7.1 mmHg LVOT SV 60.77 mL AoV Mean Grad 4.0 mmHg AoV VTI 0.225 m AoV Area VTI 2.71 cm2 AoV Area/ BSA (VTI) 1.68 cm/m2 Mitral Valve MV DT 164 (160-240 msec) MV PHT 48 msec MV Area PHT 4.62 cm2 MV VTI 0.244 m MV Area VTI 2.49 (4.0-6.0 cm2) Pulmonary Valve PV Vmax 0.91 (0.5-1.5 m/s) RVOT Peak Gr. 2.78 mmHg PV Peak Grad 3.3 mmHg RVOT Mean Gr. 1.20 mmHg PV Mean Grad 1.9 mmHg RVOT VTI 0.148 m PV VTI 0.190 m RVOT Vmax 0.83 m/s Tricuspid Valve TR Peak Grad 15.1 mmHg TR Vmax 1.94 m/s RA Pressure 3.00 mmHg RVSP (TR) 18.1 mmHg
== END ==
PROVIDERS: PCP Nurse Practitioner; Visit Provider Psychiatry & Neurology Neurology
DX: I63.9 Cerebral infarction, unspecified (principal); R29.818 Other symptoms and signs involving the nervous system
CPT/HCPCS: 93306

== ENCOUNTER 2023-07-14 19:01 | Outpatient (REF) | payer BC, SELFPAY | END 2023-07-14 19:02 | disposition home or self-care (01) | LOC: NCHCN 19:01 | PROVIDERS: PCP Nurse Practitioner; Visit Provider Nurse Practitioner | DX: R30.0 Dysuria (principal) | CPT/HCPCS: 87086 ==

== ENCOUNTER 2023-08-12 14:47 | Outpatient (CLI) | payer BC, SELFPAY ==
--- NOTE | 2023-08-12 13:30 | DI.RAD_ITS ---
Exam(s) XR SHOULDER RT COMPLETE 2+V EXAM: XR SHOULDER RT COMPLETE 2+V CLINICAL HISTORY: RIGHT SHOULDER PAIN. TECHNIQUE: 2D digital imaging was performed. Two views. COMPARISON: No exams were available for comparison FINDINGS: BONES: No acute fracture is present. No bony destructive lesion is seen. JOINTS: No dislocation present. SOFT TISSUE: Normal. IMPRESSION: Unremarkable radiographs of the right shoulder. DATA REPOSITORY: RADIATION DOSE DELIVERED:
== END 2023-08-12 14:48 | disposition home or self-care (01) ==
LOC: DIORS 14:47
PROVIDERS: PCP Nurse Practitioner; Visit Provider Student in an Organized Health Care Education/Training Program
DX: M25.511 Pain in right shoulder (principal)
CPT/HCPCS: 73030

== ENCOUNTER → 2023-08-22 00:56 | Outpatient (CLI) | payer BC, SELFPAY ==
--- NOTE | 2023-08-22 14:50 | DI.MRI_ITS ---
Exam(s) MR UPPER JOINT RT WO EXAM: MR UPPER JOINT RT WO CLINICAL HISTORY: WORSENING PAIN, ? RTC TEAR,M75.101. TECHNIQUE: Multiplanar multisequence MRI was performed. COMPARISON: Plain films 12 August 2023 FINDINGS: BONES: There is no fracture or contusion pattern. JOINTS:The acromioclavicular joint is normal. The glenohumeral joint is normal. TENDONS: Supraspinatus: Unremarkable. Infraspinatus: Unremarkable. Subscapularis: Unremarkable. Teres Minor: Unremarkable. Biceps and [place]: Unremarkable. MUSCLES: Unremarkable. GLENOID LABRUM: Unremarkable on this noncontrast examination. SOFT TISSUES: Unremarkable. OTHER: Subacromial and subdeltoid bursae . IMPRESSION: Unremarkable MRI of the shoulder. DATA REPOSITORY:
== END ==
PROVIDERS: PCP Nurse Practitioner; Visit Provider Student in an Organized Health Care Education/Training Program
DX: M25.511 Pain in right shoulder (principal)
CPT/HCPCS: 73221